=== PATIENT | female | born 1990 | race African-American/Black ===

== ENCOUNTER 2022-10-21 14:26 | Emergency (ER) | payer MEDICAID ==
[~2022-10-21] VITALS: Ht 160 cm; Wt 50.0 kg
[2022-10-21] MEDS ORDERED: POLY10DR BOTHEYE (15:28)
[2022-10-21 16:39] VITALS: BP 126/86
== END 2022-10-21 16:40 | disposition home or self-care (01) ==
LOC: ER 14:45
DX: H10.9 Unspecified conjunctivitis (principal); I10 Essential (primary) hypertension
CPT/HCPCS: 99283